=== PATIENT | female | born 1975 | race Caucasian/White ===

== ENCOUNTER 2021-08-04 18:11 | Emergency (ER) | payer OTHER, SELFPAY ==
--- NOTE | ~2021-08-04 | XR_ITS ---
EXAMINATION: XR cervical spine 4-5V DATE: 08/04/2021 19:00 INDICATION: Neck pain. TECHNIQUE: 4 views of cervical spine on 5 radiographs were obtained. COMPARISON: None. FINDINGS: There is 10 degrees dextroscoliosis of cervicothoracic spine. Vertebral body heights are no rmal. There is mildly decreased disc height at C5-C6. At C5-C6, there is moderate right uncovertebral joint osteoarthritis. The facet joints are unremarkable. There is mild central canal stenosis at C5- C6. No prevertebral soft tissue swelling. IMPRESSION: 1. Mild cervical spondylosis. 2. Cervicothoracic dextroscoliosis. Reviewed, dictated and finalized at location A.
--- NOTE | 2021-08-04 18:42 | ED.GENADULT ---
HPI - General Adult General Chief complaint: Neck Pain/Injury Stated complaint: Left shoulder Pain Time Seen by Provider: 08/04/21 18:35 Source: patient Mode of arrival: ambulatory Limitations: no limitations History of Present Illness HPI narrative: Cindy Harrison is a 46 yo female with 4 weeks of neck pain who had ibuprofen and heat and cold. She is here to for evaluation and wants an x-ray Related Data Allergies Allergy/AdvReac Type Severity Reaction Status Date / Time No Known Allergies Allergy Mild Verified 08/04/21 19:13 Review of Systems Review of Systems: CONSTITUTIONAL: Denies fever, chills, sweats. EYES: Denies visual changes, redness, discharge. ENT: Denies rhinorrhea, congestion, sore throat, otalgia. CARDIOVASCULAR: Denies chest pain, palpitations, edema. RESPIRATORY: Denies dyspnea, wheezing, cough GASTROINTESTINAL: Denies abdominal pain, nausea, vomiting, diarrhea. GENITOURINARY: Denies dysuria, hematuria, abnormal discharge SKIN: Denies rash or itching. NEUROLOGIC: Denies numbness, or focal weakness. PSYCHIATRIC: Denies anxiety or depression. Left-sided neck pain that radiates down to her shoulder PMFSH Past Medical History Medical History No acute medical problems Social History Social History Smoking status: Former smoker Smoking end date: 10/25/13 Alcohol intake: current Comments At time of signature, I agree with nursing past medical, surgical, social and family history. There is no relevant family history pertinent to the presenting complaint. Exam Narrative: GENERAL: This is a well-nourished, well-developed patient, in mild distress. HEAD: normocephalic, atraumatic. EYES: Sclera clear/white. Vision is grossly intact. EARS: External ears normal, . Hearing grossly intact. NOSE: External nose normal without nasal discharge, nares without redness, no rhinorrhea. THROAT: Mucous membranes moist, NECK: Neck supple, tender on left side with radiation into shoulder CARDIOVASCULAR: Regular rate and rhythm without murmurs, gallops, or rubs. RESPIRATORY: Clear to auscultation. Breath sounds equal bilaterally. No wheezes, rales, or rhonchi. GASTROINTESTINAL: Abdomen soft, SKIN: warm, intact with no suspicious lesions or rash, good texture and turgor. NEURO: awake, alert, and oriented to person, place and time. There were no obvious focal neurologic abnormalities. Steady gait EXTREMITIES: Normal range of motion. BACK: Nontender without deformity Course Course Emergency Course: Patient comes to 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 mild stenosis no prior prevertebral soft tissue swelling vertebral heights are maintained Started on baclofen and ibuprofen 600 3 times daily x5 days Follow-up with orthopedic surgeon Vital Signs Vital signs: Vital Signs Temperature 98.9 F 08/04/21 18:44 Pulse Rate 91 08/04/21 18:44 Respiratory Rate 16 08/04/21 18:44 Blood Pressure 118/81 08/04/21 18:44 Pulse Oximetry 99 08/04/21 18:44 Temperature 98.9 F 08/04/21 18:44 Pulse Rate 91 08/04/21 18:44 Respiratory Rate 16 08/04/21 18:44 Blood Pressure 118/81 08/04/21 18:44 Pulse Oximetry 99 08/04/21 18:44 Medical Decision Making Differential Diagnosis Differential Diagnosis: Cervical radiculopathy versus arthritis versus fracture Vital Signs Vital Signs: Vital Signs Temperature 98.9 F 08/04/21 18:44 Pulse Rate 91 08/04/21 18:44 Respiratory Rate 16 08/04/21 18:44 Blood Pressure 118/81 08/04/21 18:44 Pulse Oximetry 99 08/04/21 18:44 Temperature 98.9 F 08/04/21 18:44 Pulse
[2021-08-04 18:44] VITALS: BP 118/81; PULSE 91; RESP 16; TEMP 37.2; O2SAT 99
== END 2021-08-04 19:37 | disposition home or self-care (01) ==
PROVIDERS: Emergency Provider Nurse Practitioner
DX: M54.2 Cervicalgia (principal); Z87.891 Personal history of nicotine dependence
CPT/HCPCS: 72050; 99213; G0463

== ENCOUNTER 2023-01-26 09:03 | Emergency (ER) | payer OTHER, SELFPAY ==
[2023-01-26 09:13] VITALS: BP 125/81; PULSE 90; RESP 16; TEMP 37.3; O2SAT 99
--- NOTE | 2023-01-26 09:16 | ED.URI ---
HPI - URI/Sore Throat General Chief Complaint: Upper Respiratory Infection Stated Complaint: sore throat Time Seen by Provider: 01/26/23 09:16 Source: patient, RN notes reviewed and old records reviewed Mode of arrival: ambulatory Limitations: no limitations History of Present Illness HPI Narrative: 47-year-old female presents to the [facility] with complaints of a sore throat since Wednesday. Had tried allergy medication, Chloraseptic spray, Motrin, Tylenol, Mucinex with no relief. Denies fevers. Maintaining own secretions. Reports taken a COVID test yesterday, reports that was negative, declined testing today Related Data Allergies Allergy/AdvReac Type Severity Reaction Status Date / Time No Known Allergies Allergy Mild Verified 01/26/23 09:13 Review of Systems Review of Systems: All systems reviewed & are unremarkable except as noted in HPI and below Constitutional: Constitutional: Reports no additional constitutional complaints Eyes: Eyes: Reports no additional eye complaints ENT: Reports as per HPI and Reports sore throat Cardiovascular: Cardiovascular: Reports no additional cardiovascular complaints, Denies chest pain and Denies dyspnea Respiratory: Respiratory: Reports no additional respiratory complaints, Denies chest congestion, Denies cough and Denies dyspnea Gastrointestinal: Gastrointestinal: Reports no additional gastrointestinal complaints, Denies abdominal pain, Denies nausea and Denies vomiting Musculoskeletal: Musculoskeletal: Reports no additional musculoskeletal complaints Integumentary/Breasts: Skin/Breast: Reports system reviewed and no additional complaints, except as docu Neurologic: Reports system reviewed and no additional complaints, except as documented Psychiatric: Psychiatric: Reports no additional psychiatric complaints Allergic/Immunologic: Allergic/Immunologic: Reports no additional allergic/immunologic complaints PMFSH Past Medical History Medical History No acute medical problems Social History Social History Smoking status: Former smoker Smoking end date: 10/25/13 Alcohol intake: current Comments At the time of my signature, I reviewed and agree with the nursing past medical, surgical, social, and family history. There is no relevant family history pertinent to the patient complaint. Exam Const: General: cooperative, healthy appearing, comfortable, no acute distress, well developed, alert and well nourished Nutritional Appearance: well nourished Orientation/consciousness: patient oriented x3 Limitations: no limitations HENMT: Head: normal to inspection Ears: hearing grossly normal bilaterally and external ears normal Face/Nose/Sinus: Normal external nose present, Normal nares present, Normal nasal mucous membranes and turbinates present and normal facial exam Face and sinus: normal facial exam Mouth: Yes Normal oral and palatal mucosa present, Yes lip normal and Yes moist mucous membranes Throat: uvula midline, abnormal tonsil bilateral erythema and hypertrophy 2+; no exudates and posterior oropharynx abnormal erythema; no edema, no exudates and no lacerations Eyes: General: appearance normal, both eyes and all related structures Alignment and Position: alignment normal Periorbital: periorbital findings normal Conjunctivae: conjunctivae normal Pupils: Equal, round and reactive pupils present EOM: EOMs intact bilaterally Neck: Neck: normal visual inspection, full ROM, no lymphadenopathy and no meningeal signs Chest: Chest palpation & inspection: normal inspection of the chest Resp: Effort & Inspection: normal respiratory effort and able to speak in complete sentences Auscultation: clear to auscultation bilaterally, no crackles, no rales, no rhonchi and no wheezes Cardio: Rate: regular rate Rhythm: regular rhythm Back/Spine/Pelvis: Cervical Spine: cervi
== END 2023-01-26 09:58 | disposition home or self-care (01) ==
PROVIDERS: Emergency Provider Nurse Practitioner; PCP Nurse Practitioner Family
DX: J02.0 Streptococcal pharyngitis (principal); Z87.891 Personal history of nicotine dependence
CPT/HCPCS: 87880; 99213; G0463

== ENCOUNTER 2023-04-22 10:40 | Emergency (ER) | payer OTHER, SELFPAY ==
[2023-04-22 10:57] VITALS: BP 139/87; PULSE 76; RESP 16; TEMP 36.8; O2SAT 100
--- NOTE | 2023-04-22 11:48 | ED.URI ---
HPI - URI/Sore Throat General Chief Complaint: Upper Respiratory Infection Stated Complaint: cough,feeling ill Time Seen by Provider: 04/22/23 11:41 Source: patient and RN notes reviewed Mode of arrival: ambulatory Limitations: no limitations History of Present Illness HPI Narrative: Patient presents today complaining of a 6-7 day history of nasal congestion, sinus pressure, cough, hoarse voice, with nausea that started today. Denies shortness of breath. She has tried DayQuil, NyQuil, Claritin, Tylenol cold and Sinus, Aleve, and Delsym without much relief. Denies history of asthma or COPD. She is a nonsmoker. Related Data Home Medications Medication Instructions Recorded Confirmed L norgest/E estradiol-E estrad 04/22/23 0.15 mg-30 mcg (84)/10 mcg(7) tabs,3mos Allergies Allergy/AdvReac Type Severity Reaction Status Date / Time No Known Allergies Allergy Mild Verified 04/22/23 11:10 Review of Systems Review of Systems: CONSTITUTIONAL: Denies body aches, fever, chills, or sweats. EYES: Denies visual changes, redness, or discharge. ENT: Denies rhinorrhea, sore throat, or otalgia.+ congestion, sinus pressure, hoarse voice CARDIOVASCULAR: Denies chest pain, palpitations, or edema. RESPIRATORY: Denies dyspnea.+ cough GASTROINTESTINAL: Denies abdominal pain, vomiting, or diarrhea.+ nausea GENITOURINARY: Denies dysuria or hematuria. SKIN: Denies rash, itching, or wounds. MUSCULOSKELETAL: Denies back pain, joint pain, or myalgia. NEUROLOGIC: Denies headache, numbness, tingling, or weakness. PSYCH: Denies depression or anxiety. [facility] Past Medical History Medical History No acute medical problems Social History Social History Smoking status: Former smoker Smoking end date: 10/25/13 Alcohol intake: current Comments At time of signature, I have reviewed and agree with nursing past medical, surgical, social and family history unless otherwise noted. Please see nursing chart for further information. There is no relevant family history pertinent to the presenting complaint Exam Narrative: GENERAL: Well-appearing, well-nourished, and in no acute distress. HEAD: Normocephalic, atraumatic. EYES: EOMI. No redness or drainage. Conjunctivae normal. ENT: Mucous membranes pink and moist. Nares congested. Bilateral frontal sinus tenderness. Bilateral erythematous and swollen nasal turbinates. TMs normal bilaterally. Throat normal. Uvula midline. Hoarse voice. NECK: Normal AROM. Supple. No lymphadenopathy. CHEST: No respiratory distress. Clear to auscultation. Harsh cough noted. HEART: Regular rate and rhythm. No murmur appreciated. Normal peripheral pulses. EXTREMITIES: Normal range of motion. No edema. SKIN: Warm, dry, no rash. Capillary refill normal. Normal skin turgor. NEURO: No focal deficits. Alert and oriented x3. Gait steady. PSYCH: Normal affect. No signs of depression or anxiety. Course Course Level of Care: Express Care Visit Vital Signs Vital signs: Vital Signs Temperature 98.2 F 04/22/23 10:57 Pulse Rate 76 04/22/23 10:57 Respiratory Rate 16 04/22/23 10:57 Blood Pressure 139/87 04/22/23 10:57 Pulse Oximetry 100 04/22/23 10:57 Oxygen Delivery Room Air 04/22/23 10:57 Temperature 98.2 F 04/22/23 10:57 Pulse Rate 76 04/22/23 10:57 Respiratory Rate 16 04/22/23 10:57 Blood Pressure 139/87 04/22/23 10:57 Pulse Oximetry 100 04/22/23 10:57 Oxygen Delivery Room Air 04/22/23 10:57 Reviewed. Pt has been instructed to follow up with her PCP regarding her elevated blood pressure today. MDM - URI/Sore Throat MDM Narrative Medical decision making narrative: Will treat patient's bronchitis with a course of prednisone, and will treat her sinus pressure and congestion with amoxicillin. Anticipatory guidance given. D
== END 2023-04-22 11:58 | disposition home or self-care (01) ==
PROVIDERS: Emergency Provider Nurse Practitioner; PCP Nurse Practitioner Family
DX: J40 Bronchitis, not specified as acute or chronic (principal); R09.81 Nasal congestion; Z87.891 Personal history of nicotine dependence
CPT/HCPCS: 99213; G0463

== ENCOUNTER 2024-03-08 13:50 | Emergency (ER) | payer OTHER, SELFPAY ==
--- NOTE | ~2024-03-08 | XR_ITS ---
EXAMINATION: XR abdomen/kub 1V DATE: 03/08/2024 14:40 INDICATION: Abdominal pressure. TECHNIQUE: A supine view of the abdomen was obtained. COMPARISON: None. FINDINGS: There are no dilated loops of bowel. There is a small volume of stool in the colon. IMPRESSION: 1. Normal bowel gas pattern. Reviewed, dictated and finalized at location E.
[2024-03-08 14:01] VITALS: BP 161/85; PULSE 75; RESP 16; TEMP 37; O2SAT 100
--- NOTE | 2024-03-08 14:36 | ED.FEMALEGU ---
HPI - Female Genitourinary General Chief complaint: Urogenital-Female Stated complaint: lower back pain Time Seen by Provider: 03/08/24 14:24 Source: patient and RN notes reviewed Mode of arrival: ambulatory Limitations: no limitations History of Present Illness HPI Narrative: Patient presents today complaining of a 2 week history of low back pain that was intermittent, but returned again and is now constant over the last 3 days. She is also feeling some bladder pressure. Denies dysuria, frequency, urgency. She currently rates her back pain 10/. She has been taking ibuprofen, ice, heat with little relief. She was started on Macrobid by her doctor 3 days ago and has not been providing any relief. She was on a course of Keflex at the beginning of January for urinary symptoms. She denies fever, nausea or vomiting. She does have history of kidney stones Related Data Home Medications Medication Instructions Recorded Confirmed L norgest/E estradiol-E estrad 1 tablet PO DAILY 04/22/23 03/08/24 0.15 mg-30 mcg (84)/10 mcg(7) tabs,3mos nitrofurantoin 1 cap PO DAILY 03/08/24 03/08/24 monohydrate/macrocrystals 100 mg capsule semaglutide (weight loss) 0.25 mg subcut WEEKLY 03/08/24 03/08/24 Allergies Allergy/AdvReac Type Severity Reaction Status Date / Time No Known Allergies Allergy Mild Verified 03/08/24 14:02 Review of Systems Review of Systems: CONSTITUTIONAL: Denies body aches, fever, chills, or sweats. EYES: Denies visual changes, redness, or discharge. ENT: Denies rhinorrhea, congestion, sore throat, or otalgia. CARDIOVASCULAR: Denies chest pain, palpitations, or edema. RESPIRATORY: Denies cough or dyspnea. GASTROINTESTINAL: Denies nausea, vomiting, or diarrhea.+ suprapubic pressure GENITOURINARY: Denies dysuria or hematuria. SKIN: Denies rash, itching, or wounds. MUSCULOSKELETAL: Denies joint pain, or myalgia.+ low back pain NEUROLOGIC: Denies headache, numbness, tingling, or weakness. PSYCH: Denies depression or anxiety. [facility] Past Medical History Medical History (Updated 03/08/24 @ 15:07 by Jessie Mandel, OSTOMY CARE NURSE, ) Kidney stones No acute medical problems Social History Social History Smoking status: Former smoker Smoking end date: 10/25/13 Alcohol intake: current Comments At time of signature, I have reviewed and agree with nursing past medical, surgical, social and family history unless otherwise noted. Please see nursing chart for further information. There is no relevant family history pertinent to the presenting complaint Exam Narrative: GENERAL: Well-appearing, well-nourished, and in no acute distress. HEAD: Normocephalic, atraumatic. EYES: EOMI. No redness or drainage. Conjunctivae normal. ENT: Mucous membranes pink and moist. NECK: Normal AROM. CHEST: No respiratory distress. Clear to auscultation. HEART: Regular rate and rhythm. No murmur appreciated. Normal peripheral pulses. ABDOMEN: Soft, nontender, nondistended, normal active bowel sounds.-CVAT MUSCULOSKELETAL: No bony tenderness. Bilateral lower lumbar paraspinal muscle tenderness EXTREMITIES: Normal range of motion. No edema. SKIN: Warm, dry, no rash. Capillary refill normal. Normal skin turgor. NEURO: No focal deficits. Alert and oriented x3. Gait steady. PSYCH: Normal affect. No signs of depression or anxiety. Course Course Level of Care: Express Care Visit Vital Signs Vital signs: Vital Signs Temperature 98.6 F 03/08/24 14:01 Pulse Rate 75 03/08/24 14:01 Respiratory Rate 16 03/08/24 14:01 Blood Pressure 161/85 H 03/08/24 14:01 Pulse Oximetry 100 03/08/24 14:01 Oxygen Delivery Room Air 03/08/24 14:01 Temperature 98.6 F 03/08/24 14:01 Pulse Rate 75 03/08/24 14:01 Respiratory Rate 16 03/08/24 14:01 Blood Pressure 161/85 H 03/08/24 14:01 Pulse Oximetry 100 03/08/24 14:01 Oxygen Delivery
== END 2024-03-08 15:15 | disposition home or self-care (01) ==
PROVIDERS: Emergency Provider Nurse Practitioner; PCP Nurse Practitioner Family
DX: N30.01 Acute cystitis with hematuria (principal); B95.2 Enterococcus as the cause of diseases classified elsewhere; B96.89 Other specified bacterial agents as the cause of diseases classified elsewhere; Z87.442 Personal history of urinary calculi; Z87.891 Personal history of nicotine dependence
CPT/HCPCS: 74018; 81003; 87077; 87086; 87088; 87181; 99213; G0463

== ENCOUNTER 2024-08-14 08:52 | Emergency (ER) | payer OTHER, SELFPAY ==
[2024-08-14 09:01] VITALS: BP 120/76; PULSE 102; RESP 19; TEMP 37.5; O2SAT 99
--- NOTE | 2024-08-14 09:21 | ED.FEMALEGU ---
HPI - Female Genitourinary General Chief complaint: Urogenital-Female Stated complaint: Sore Throat/UTI Time Seen by Provider: 08/14/24 09:18 Source: patient and RN notes reviewed Mode of arrival: ambulatory Limitations: no limitations History of Present Illness HPI Narrative: 49-year-old female presents with multiple complaints. She reports for about a week she has been having nasal congestion, sore throat, ear pain and pressure. She reports she started having urine frequency urgency, burning last night. She reports headache, nausea. She denies abdominal pain, back pain, fever MD elicited complaint: UTI Related Data Home Medications Medication Instructions Recorded Confirmed L norgest/E estradiol-E estrad 1 tablet PO DAILY 04/22/23 08/14/24 0.15 mg-30 mcg (84)/10 mcg(7) tabs,3mos Allergies Allergy/AdvReac Type Severity Reaction Status Date / Time No Known Allergies Allergy Mild Verified 03/08/24 14:02 Review of Systems Review of Systems: CONSTITUTIONAL: Denies malaise, chills, sweats, or fever. HEENT: Patient reports nasal congestion, rhinorrhea, sore throat, ear pain CARDIOVASCULAR: Denies chest pain, palpitations, or edema. RESPIRATORY: Denies cough or dyspnea. GASTROINTESTINAL: Denies abdominal pain, nausea, vomiting, diarrhea GENITOURINARY: Reports dysuria, frequency, urgency, suprapubic pressure. Denies flank pain or hematuria. SKIN: Denies rash or itching. MUSCULOSKELETAL: Denies back pain or myalgia. All systems reviewed & are unremarkable except as noted in HPI and below PMFSH Past Medical History Medical History (Updated 08/14/24 @ 09:26 by Michelle Mckeon NP) Kidney stones No acute medical problems Social History Social History Smoking status: Former smoker Smoking end date: 10/25/13 Alcohol intake: current Comments At time of signature, agree with nursing past medical, surgical, social and family history. There is no relevant family history pertinent to the presenting complaint Exam Narrative: GENERAL: Well-appearing, well-nourished, and in no acute distress. HEAD: Normocephalic EYES: PERRLA, conjunctivae clear ENT: Nares clear. Mucous membranes moist. TM pearly stein with dull light reflex bilaterally; no tragal tenderness. Oropharynx erythematous without lesions. Tonsils not enlarged and without exudate, no drooling, no hoarseness, no trismus, uvula midline. NECK: Supple. No lymphadenopathy CHEST: Clear to auscultation, breath sounds equal. No wheezing, rhonchi, rales, or stridor. No respiratory distress, speaks in full sentences. HEART: Regular rate and rhythm. No murmur heard. SKIN: Warm, dry, no rash. NEURO: Alert and oriented x3. PSYCH: Normal mood and affect Course Course Emergency Course: Patient is aware of diagnosis, understands and agrees to treatment plan. Anticipatory guidance given. Patient agrees to follow-up as directed and is aware of reasons to seek care at the emergency department. Portions of this record may have been created with voice recognition software Level of Care: Express Care Visit Vital Signs Vital signs: Vital Signs Temperature 99.5 F 08/14/24 09:01 Pulse Rate 102 H 08/14/24 09:01 Respiratory Rate 19 08/14/24 09:01 Blood Pressure 120/76 08/14/24 09:01 Pulse Oximetry 99 08/14/24 09:01 Oxygen Delivery Room Air 08/14/24 09:01 Temperature 99.5 F 08/14/24 09:01 Pulse Rate 102 H 08/14/24 09:01 Respiratory Rate 19 08/14/24 09:01 Blood Pressure 120/76 08/14/24 09:01 Pulse Oximetry 99 08/14/24 09:01 Oxygen Delivery Room Air 08/14/24 09:01 Reviewed. MDM - Female Genitourinary MDM Narrative Medical decision making narrative: Exam findings and UA show no acute concerns or changes; patient is non-toxic appearing and is in no distress. Patient is appropriate for outpatient treatment and follow-up. Differential Diagnosis Dif
[2024-08-14 09:23] LABS: EDSTREPNEGPOS1 Positive (Negative)
[2024-08-14 09:23] LABS: EDUAAPPEAR Cloudy; EDUABILI 2+ (Negative); EDUABLOOD 3+ (Negative); EDUACOLOR1 Dark; EDUAGLUCOSE Negative (Negative); EDUAKETONE 4+ (Negative); EDUALEUKO 1+ (Negative); EDUANITRATE Positive (Negative); EDUAPROTEIN 2+ (Negative)
[2024-08-14 09:42] LABS: EDSTREPNEGPOS1 Positive (Negative)
[2024-08-14 09:43] LABS: EDUAAPPEAR Cloudy; EDUABILI 2+ (Negative); EDUABLOOD 3+ (Negative); EDUACOLOR1 Dark; EDUAGLUCOSE Negative (Negative); EDUAKETONE 4+ (Negative); EDUALEUKO 1+ (Negative); EDUANITRATE Positive (Negative); EDUAPROTEIN 2+ (Negative)
== END 2024-08-14 09:35 | disposition home or self-care (01) ==
PROVIDERS: Emergency Provider Nurse Practitioner; PCP Nurse Practitioner Family
DX: N39.0 Urinary tract infection, site not specified (principal); J02.0 Streptococcal pharyngitis; Z87.891 Personal history of nicotine dependence
CPT/HCPCS: 81003; 87086; 87880; 99213; G0463